=== PATIENT | male | born 1990 | race Caucasian/White ===

== ENCOUNTER 2021-08-09 17:11 | Inpatient (IN) | payer OTHER ==
[~2021-08-09] VITALS: Ht 210.8 cm; Wt 65.9 kg
[2021-08-09 18:12] LABS: BASOPHIL 0.5 % (0-2); EOSINOPHIL 0.2 % (0-5); HCT 31.7 % (42.0-52.0); HGB 9.4 g/dl (13.2-18.0); LYMPHOCYTE 19.7 % (15-48); MCH 23.7 pg (25.0-31.0); MCHC 29.7 g/dL (32.0-36.0); MCV 79.8 fL (78.0-100.0); NEUTROPHIL 71.3 % (41-80); NRBC 0; PLT 817 K/uL (150-400); RBC 3.97 M/uL (4.70-6.00); RDW 17.2 % (11.5-14.0); WBC 16.5 K/uL (4.0-10.5)
[2021-08-09 18:37] LABS: LACTIC ACID 1.1 mmol/L (0.4-1.9)
[2021-08-09 18:43] LABS: BILIRUBIN - TOTAL 0.1 mg/dL (0.2-1.0); BUN/CREAT RATIO (CALC) 38.5 RATIO; C-REACTIVE PROTEIN 13.5 mg/dL (<=0.90); CREATININE 0.39 mg/dL (0.67-1.17); GLOBULIN (CALCULATION) 6.5 g/dL; MAGNESIUM 2.1 mg/dL (1.8-2.4); POTASSIUM 3.8 mmol/L (3.5-5.1); TOTAL PROTEIN 8.5 g/dL (6.4-8.2)
[2021-08-09 19:51] LABS: BILIRUBIN NEGATIVE (NEGATIVE); BLOOD TRACE-INTACT Ery/uL (NEGATIVE); CLARITY CLOUDY (CLEAR); COLOR YELLOW (YELLOW); GLUCOSE (U) NORMAL (NORMAL); LEUKOCYTES 3+ Leu/uL (NEGATIVE); NITRITE NEGATIVE (NEGATIVE); PROTEIN 2+ mg/dL (NEGATIVE); SPECIFIC GRAVITY 1.025 (1.001-1.030); pH 7.5 (5.0-9.0)
[2021-08-09 19:58] LABS: BACTERIA 4+; URINARY WBC TNTC
--- NOTE | 2021-08-10 09:29 | NUR ---
PT REFUSING MEDICATIONS AND LAB DRAW. STATES "I NEED MY DISCHARGE PAPERS" AFTER BEING EDUCATED THAT HE WAS NOT MEDICALLY STABLE FOR DISCHARGE PT STATES "I'M LEAVING ANYWAY". SAW PT AND EDUCATED ON THE SEVERITY OF PT ILLNESS. PT CONTINUES TO STATE HE IS LEAVING AMA. PT IS ALERT AND ORIETED X4 AND ABLE TO MAKE OWN DECISIONS. PT CALLED [facility] TO PICK HIM UP
== END 2021-08-10 11:05 | disposition left against medical advice (07) | DRG 871 ==
LOC: FER 17:11 → FMS 20:00
PROVIDERS: Emergency Medicine; ADMIT Internal Medicine
DX: A41.9 Sepsis, unspecified organism (principal); L89.153 Pressure ulcer of sacral region, stage 3; M72.6 Necrotizing fasciitis; A48.0 Gas gangrene; G82.20 Paraplegia, unspecified; N39.0 Urinary tract infection, site not specified; Z66 Do not resuscitate; Z20.822 Contact with and (suspected) exposure to COVID-19; D63.8 Anemia in other chronic diseases classified elsewhere; Z98.890 Other specified postprocedural states
CPT/HCPCS: 36415; 71250; 72131; 80053; 81001; 83605; 83735; 84145; 85025; 86140; 87040; 87076; 87088; 87186; 93005; J0692; J1170; J1650; J2405; J2543; J3370; J7030; J7050; U0002